=== PATIENT | male | born 1985 | race American Indian/Alaskan Native ===

== ENCOUNTER 2017-12-04 14:39 | Emergency (ER) | payer MEDICAID ==
[2017-12-04 14:50] VITALS: BP 141/87; PULSE 94; RESP 20; TEMP 98.3; O2SAT 100
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
--- NOTE | 2017-12-04 16:42 | RAD ---
PROCEDURE: Right Foot Radiographs. HISTORY: Pain. COMPARISON: None. FINDINGS: BONES: No evidence of acute displaced fracture nor dislocation. The osseous structures appear intact. There is mild hallux valgus deformity. . Very tiny posterior calcaneal enthesophyte. JOINTS: Joint spaces preserved. SOFT TISSUES: Normal. OTHER FINDINGS: None. IMPRESSION: No evidence of acute displaced fracture nor dislocation.
== END 2017-12-04 16:18 | disposition home or self-care (01) ==
LOC: C.ER 14:39
DX: S90.31XA Contusion of right foot, initial encounter (principal); W22.8XXA Striking against or struck by other objects, initial encounter; Y92.810 Car as the place of occurrence of the external cause